=== PATIENT | female | born 2000 | race African-American/Black ===

== ENCOUNTER 2025-04-13 11:03 | Emergency (ER) | payer OTHER ==
[~2025-04-13] VITALS: Ht 167.6 cm; Wt 83.3 kg
[2025-04-13 11:20] VITALS: BP 120/67; TEMP 97.9; O2SAT 100
== END 2025-04-13 12:02 | disposition home or self-care (01) ==
LOC: M ED 11:03
DX: T19.2XXA Foreign body in vulva and vagina, initial encounter (principal); F10.10 Alcohol abuse, uncomplicated; Y92.9 Unspecified place or not applicable

== ENCOUNTER 2025-05-14 19:26 | Emergency (ER) | payer OTHER ==
[~2025-05-14] VITALS: Ht 165.1 cm; Wt 87.2 kg
[2025-05-14 21:55] LABS: BASO # 0.0 10^3/uL (0.0-0.2); BASO % 0.5 % (0.0-1.0); EOS # 0.1 10^3/uL (0.0-0.5); EOS % 1.7 % (0.0-3.0); LYMPH # 2.3 10^3/uL (1.5-5.0); LYMPH % 29.4 % (24.0-44.0); MONO # 0.7 10^3/uL (0.0-0.8); MONO % 9.5 % (2.0-8.0); NEUTROPHILS # 4.6 10^3/uL (1.5-8.5); NEUTROPHILS % 58.5 % (36.0-66.0); PLATELET COUNT, AUTOMATED 339 10^3/uL (150-450)
[2025-05-14 22:22] LABS: HCG, SERUM QUALITATIVE NEGATIVE (NEGATIVE)
[2025-05-14 22:24] LABS: ALT/SGPT 14 U/L (7.0-40); AST/SGOT 16 U/L (<34); CALCIUM LEVEL 9.7 MG/DL (8.5-10.1); CARBON DIOXIDE LEVEL 29 MMOL/L (20-31); CHLORIDE LEVEL 104 MMOL/L (98-107); CREATININE FOR GFR 0.61 MG/DL (0.55-1.30); GLOMERULAR FILTRATION RATE > 90.0 (>60); POTASSIUM SERUM 3.9 MMOL/L (3.5-5.1); SODIUM LEVEL 140 MMOL/L (136-145)
[2025-05-14 22:54] LABS: KETONE, URINE AUTO RFX NEGATIVE (NEGATIVE); LEUKOCYTE ESTERASE UR AUTO RFX NEGATIVE (NEGATIVE); MUCUS, URINE RFX SMALL (NEGATIVE); NITRITE, URINE AUTO RFX NEGATIVE (NEGATIVE); RBC, URINE AUTO RFX 1 /HPF (0-3); SQUAM EPITHELIAL CELL UR AURFX 5 /HPF (0-6); WBC, URINE AUTO RFX 1 /HPF (0-3)
[2025-05-14] MEDS: KETOROLAC 30 MG/ML 1 ML VIAL IV ONE (23:47)
[2025-05-15] MEDS ORDERED: META0.52 PO (00:10)
[2025-05-15] MEDS ORDERED: MIRA3350 PO (00:10)
[2025-05-15 00:37] VITALS: BP 107/67; TEMP 97.3; O2SAT 96
[2025-05-15] MEDS: MAGNESIUM CITRATE 300 ML BTL PO ONE (00:38)
== END 2025-05-15 00:42 | disposition home or self-care (01) ==
LOC: M ED 19:26
DX: K59.00 Constipation, unspecified (principal); F10.10 Alcohol abuse, uncomplicated; Z79.899 Other long term (current) drug therapy
CPT/HCPCS: 74018; 80048; 80076; 81001; 83690; 84703; 85025; 96374; 99284; J1885